=== PATIENT | female | born 1960 | race Caucasian/White ===

== ENCOUNTER 2016-04-08 11:03 | Emergency (ER) | payer SELFPAY ==
--- NOTE | 2016-04-08 11:43 | RAD ---
CHEST 2 VIEWS: HISTORY: Inspiratory chest pain. COMPARISON: 03/08/14. FINDINGS: The cardiac silhouette and pulmonary vasculature are unremarkable. Calcified granuloma at the left base is stable. There is no confluent airspace consolidation, pneumothorax, or pleural fluid eviden t. IMPRESSION: No active cardiopulmonary abnormalities are demonstrated. POS: [facility]
== END 2016-04-08 11:50 | disposition home or self-care (01) ==
LOC: NAV ERS 11:03
DX: M54.9 Dorsalgia, unspecified (principal); R05 Cough; F41.9 Anxiety disorder, unspecified; F32.9 Major depressive disorder, single episode, unspecified; F17.210 Nicotine dependence, cigarettes, uncomplicated
CPT/HCPCS: 71020; 99283

== ENCOUNTER 2024-12-08 12:23 | Emergency (ER) | payer BC, SELFPAY ==
[2024-12-08] MEDS ORDERED: Acetaminophen 500 MG TAB ONE (13:22)
[2024-12-08] MEDS ORDERED: Naproxen 500 MG TAB ONE (13:23)
== END 2024-12-08 14:10 | disposition home or self-care (01) ==
LOC: NAV ERS 12:23
DX: M25.561 Pain in right knee (principal); F17.210 Nicotine dependence, cigarettes, uncomplicated
CPT/HCPCS: 99283